=== PATIENT | female | born 1980 | race Hispanic/Latino ===

== ENCOUNTER → 2020-06-26 | Outpatient (CLI) | payer OTHER | END | disposition home or self-care (01) | LOC: RAH 13:13 | PROVIDERS: ATTEND Family Medicine Sports Medicine | DX: M77.32 Calcaneal spur, left foot (principal); M84.375A Stress fracture, left foot, initial encounter for fracture | CPT/HCPCS: 73700 ==

== ENCOUNTER → 2020-12-10 | Outpatient (CLI) | payer OTHER ==
[~2020-12-10] MED LIST: IOHEXOL-350 75 ML VIAL IV ONE
== END | disposition home or self-care (01) ==
LOC: RAH 13:10
PROVIDERS: ATTEND Family Medicine
DX: R06.02 Shortness of breath (principal); N63.10 Unspecified lump in the right breast, unspecified quadrant; N63.20 Unspecified lump in the left breast, unspecified quadrant
CPT/HCPCS: 71275; Q9967

== ENCOUNTER → 2022-05-12 | Outpatient (CLI) | payer MEDICAID ==
[2022-05-12 12:30] LABS: CREATININE 0.8 mg/dL (0.5-1.5)
== END | disposition home or self-care (01) ==
LOC: LAB 11:41
PROVIDERS: ATTEND Obstetrics & Gynecology
DX: N63.0 Unspecified lump in unspecified breast (principal)
CPT/HCPCS: 36415; 82565; 84520

== ENCOUNTER → 2024-08-30 | Outpatient (CLI) | payer MEDICAID, OTHER | END | disposition home or self-care (01) | LOC: SHCH 14:55 | PROVIDERS: ATTEND Internal Medicine Cardiovascular Disease | DX: R00.0 Tachycardia, unspecified (principal) | CPT/HCPCS: 93306 ==